=== PATIENT | female | born 1950 | race Caucasian/White ===

== ENCOUNTER → 2018-04-15 | Day surgery (SDC) | payer OTHER ==
[2018-04-13 11:17] LABS: BASOPHILS # (AUTO) 0.1 (0.0-0.1); BASOPHILS % 1.2 % (0.0-1.0); EOSINOPHILS # (AUTO) 0.1 (0.0-0.4); EOSINOPHILS % 1.5 % (0.0-6.0); HEMATOCRIT 39.6 % (34.2-44.1); HEMOGLOBIN 13.3 g/dL (12.0-16.0); LYMPHOCYTES # (AUTO) 2.8 (1.0-3.2); LYMPHOCYTES % 42.6 % (18.0-39.1); MEAN CORPUSCULAR HGB CONC 33.6 g/dL (31-35); MEAN CORPUSCULAR VOLUME 89.4 fL (81-99); MONOCYTES # (AUTO) 0.5 (0.2-0.8); MONOCYTES % 7.1 % (4.4-11.3); NEUTROPHILS # (AUTO) 3.1 (2.1-6.9); NEUTROPHILS % 47.3 % (38.7-80.0); PLATELET COUNT 228 x10e3/uL (140-360); RED BLOOD COUNT 4.43 x10e6/uL (3.6-5.1); RED CELL DISTRIBUTION WIDTH 13.8 % (11.7-14.4)
[~2018-04-15] MED LIST: ASPIR 8181 MG PO; BIOTIN PO; CENTRUM SILVER1 EAC3 PO; CRESTOR10 MG PO; FENTANYL CITRATE/PF 100MCG/2 ML INJ ONE; FISH OIL 1,2001 EACH PO; GLUCAGON FOR INJ 1 MG VIAL ONE; HYOSCYAMINE SULFATE 0.5 MG/ML INJ ONE; MIDAZOLAM HCL 2 MG/2 ML VIAL ONE; PROPOFOL IV EMULSION 10 MG/ML 50 ML VIAL ONE; RAMIPRIL5 MG PO
[2018-04-15 09:10] VITALS: BP 122/78
--- NOTE | 2018-04-15 18:09 | Operative Report ---
DATE OF PROCEDURE: 04/15/2018 SURGEON: Aneesh Beasley MD PROCEDURE: Colonoscopy and polypectomy. INDICATIONS FOR COLONOSCOPY: Surveillance colonoscopy, personal history of colon polyps, last colonoscopy in 2014. MEDICATIONS: The patient was done under MAC. Please see anesthesiologist's note. PROCEDURE IN DETAIL: With the patient in left lateral decubitus position, a flexible fiberoptic Olympus colonoscope was inserted into the rectum with ease and advanced all the way to the cecum. Minute polyps were hot biopsied from the cecum and polypectomy site was hemoclipped. The ascending appeared to be within normal limits. A minute polyp was hot biopsied from the transverse colon. The descending colon appeared to be within normal limits. Four minute polyps were hot biopsied from the sigmoid colon and five were hot biopsied from the rectum. The scope was then retroflexed into the distal rectum and small internal hemorrhoids were noted, none of which was actively bleeding. The scope was then straightened out and was subsequently withdrawn. The patient tolerated the procedure well. A total of 11 polyps were removed. IMPRESSION: 1. Cecal polyp, hot biopsied, site hemoclipped. 2. Transverse colon polyp, hot biopsied. 3. Sigmoid colon polyps x4, hot biopsied. 4. Rectal polyps x5, hot biopsied. 5. Internal hemorrhoids, none actively bleeding. PLAN: Followup pathology. Initiate high-fiber, low-fat diet. Initiate high-fiber supplement. The patient might benefit from a followup colonoscopy in 3 to 5 years. A total of 11 eleven polyps were removed. Aneesh Beasley MD [facility] [place] /[id number] cc: Ken Bain DO
== END | disposition home or self-care (01) ==
LOC: OR 06:19
PROVIDERS: ATTEND Internal Medicine Gastroenterology
DX: Z12.11 Encounter for screening for malignant neoplasm of colon (principal); Z86.010 Personal history of colon polyps; K63.5 Polyp of colon; I10 Essential (primary) hypertension; Z01.812 Encounter for preprocedural laboratory examination; K64.8 Other hemorrhoids
CPT/HCPCS: 36415 ×2; 45384; 82948; 85025; 93005; J1610; J1980; J2250; J2704; 45378; 45385